=== PATIENT | male | born 1980 | race Caucasian/White ===

== ENCOUNTER 2022-07-26 21:45 | Inpatient (IN) | payer OTHER, SELFPAY ==
--- NOTE | ~2022-07-26 | XR_ITS ---
EXAMINATION: XR chest 1V portable INDICATION: Shortness of breath TECHNIQUE: Portable AP chest at 1248 hours COMPARISON: 07/27/2022 FINDINGS: Patchy opacities of the lung bases persist with slight worsening on the left. No pleural ef fusion or pneumothorax. The cardiomediastinal silhouette is normal. Suture anchors are noted in the l eft humeral head. IMPRESSION: 1. Patchy opacities of the lung bases with slight worsening on the left, consistent with atelectasis versus pneumonia. Reviewed, dictated and finalized at location B. 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 Patchy opacities of the lung bases with slight worsening on the left, consis tent with atelectasis versus pneumonia.
--- NOTE | ~2022-07-26 | CT_ITS ---
EXAMINATION: CT diagnostic chest wo con DATE: 07/27/2022 05:12 INDICATION: Severe cough and congestion for 13 days TECHNIQUE: Computed tomography (CT) of the chest was performed without intravenous contrast. Automate d exposure control and iterative reconstruction technique were employed. Exam dose: 563.17 mGy-cm to crow exam DLP. COMPARISON: 07/27/2022 PA and lateral chest FINDINGS: There is mild patchy infiltrate of the middle lobe and scattered patchy consolidating infil trates of both lower lobes, likely due to bilateral pneumonia. If diagnosis includes aspiration pneum onitis. Normal heart size. No pericardial or pleural effusion. No hilar or mediastinal mass lesion or lymphad enopathy. Normal morphology of the adrenal glands. IMPRESSION: Patchy bilateral lower lobe and middle lobe infiltrates, consistent with bilateral pneum onia or less likely aspiration pneumonitis Reviewed, dictated and finalized at Location [facility]. Reviewed, dictated and finalized at location A. IMPRESSION: Patchy bilateral lower lobe and middle lobe infiltrates, consisten t with bilateral pneumonia or less likely aspiration pneumonitis
--- NOTE | ~2022-07-26 | US_ITS ---
EXAMINATION: US carotid duplex BI DATE: 07/27/2022 10:10 INDICATION: Syncope TECHNIQUE: Grayscale, color Doppler, and pulsed Doppler images of the cervical carotid arteries were obtained. The degree of vessel stenosis is placed in one of the following categories: normal, <50%, 5 0-69%, >=70% but less than near-occlusion, near-occlusion, or total occlusion. Note that percent sten osis relative to normal distal artery lumen diameter is indirectly measured from velocity measurement s as described by Akshat, et al. Radiology 2003; 229:340-346. COMPARISON: None. FINDINGS: RIGHT: The right common carotid artery (CCA) peak systolic velocity (PSV) is 111.2 cm/s. The right internal carotid artery (ICA) PSV is 66.5 cm/s. The right ICA end-diastolic velocity (EDV) is 19.2 cm/s. The r ight ICA/CCA PSV ratio is 0.6. Grayscale and color Doppler images yield an estimate of 0% diameter re duction from plaque in the ICA. The external carotid artery (ECA) PSV is 118.9 cm/s. There is antegra de flow in the right vertebral artery. LEFT: The left CCA PSV is 113.7 cm/s. The left ICA PSV is 81.5 cm/s. The left ICA EDV is 20.0 cm/s. The lef t ICA/CCA PSV ratio is 0.7. Grayscale and color Doppler images yield an estimate of 0% diameter reduc tion from plaque in the ICA. The ECA PSV is 97.1 cm/s. There is antegrade flow in the left vertebral artery. IMPRESSION: 1. No stenosis in the right internal carotid artery. 2. No stenosis in the left internal carotid artery. Reviewed, dictated and finalized at Location [facility]. Reviewed, dictated and finalized at location A. 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
--- NOTE | ~2022-07-26 | XR_ITS ---
XR chest 2V DATE: 07/27/2022 03:59 INDICATION: Cough TECHNIQUE: PA and lateral views COMPARISON: None FINDINGS: There is patchy infiltrate at the right lung base and in the left lower lobe, particularly the retrocardiac area and basilar area. Differential diagnosis includes bilateral lower lobe pneumoni a and aspiration pneumonitis. Normal heart size. No hilar or mediastinal enlargement. No pleural effusion or pulmonary vascular con gestion or pneumothorax. IMPRESSION: Bilateral lower lobe infiltrates; differential diagnosis includes bilateral pneumonia and aspiration pneumonitis Reviewed, dictated and finalized at location A. IMPRESSION: Bilateral lower lobe infiltrates; differential diagnosis includes b ilateral pneumonia and aspiration pneumonitis
[2022-07-26 21:49] VITALS: BP 144/66; PULSE 96; RESP 20; TEMP 36.2; O2SAT 95
--- NOTE | 2022-07-26 22:01 | ECG_ITS ---
Measurements Intervals [place] Rate: 97 P: 52 MA: 137 QRS: 16 QRSD: 88 T: 46 QT: 356 QTc: 452 Interpretive Statements SINUS RHYTHM BASELINE ARTIFACT- I, II, AVR NORMAL ECG NO PREVIOUS ECG AVAILABLE FOR COMPARISON Electronically Signed On 07-27-2022 7:31:27 CDT by Bryan Howard D.O.
[2022-07-26 22:23] LABS: Basophils Percent Auto 0.6 % (0.2-1.2); Eosinophils Percent Auto 0.2 % (0-4.4); Hematocrit 48.2 % (42.0-52.0); Hemoglobin 16.6 g/dL (14.0-18.0); Immature Granulocyte Absolute 0.02 K/mm3 (0.00-0.031); Immature Granulocyte Percent A 0.4 % (0-0.5); Lymphocytes Absolute Auto 1.75 K/mm3 (0.9-3.2); Mean Corpuscular HGB Conc 34.4 g/dl (32-36); Mean Corpuscular Hemoglobin 30.3 pg (26-34); Mean Platelet Volume 9.9 fl (7.4-10.4); Monocytes Absolute Auto 0.4 K/mm3 (0.1-0.6); Monocytes Percent Auto 8.2 % (2.6-8.5); Neutrophils Absolute Auto 2.9 K/mm3 (1.3-6.7); Neutrophils Percent Auto 56.6 % (45.5-73.1); Platelet Count Result 192 k/mm3 (150-375); Red Blood Count 5.48 M/mm3 (4.6-6.20); Red Cell Distribution Width 12.5 % (11.5-14.5); White Blood Count 5.2 K/mm3 (4.5-10.0)
[2022-07-26 22:35] LABS: Alanine Aminotransferase 69 U/L (6-50); Albumin Level 4.8 g/dL (3.5-5.1); Alkaline Phosphatase 113 U/L (38-126); Anion Gap 13 mmol/L (8-16); Aspartate Amino Transferase 62 U/L (17-59); Bilirubin,Total 0.7 mg/dL (0.2-1.3); Blood Urea Nitrogen 13 mg/dL (9-20); Calcium 9.5 mg/dL (8.4-10.2); Carbon Dioxide 31 mmol/L (22-30); Chloride 97 mmol/L (98-107); Estimated Glomerular Filt Rate > 60; Glucose 137 mg/dL (65-110); Potassium 4.2 mmol/L (3.4-5.0); Sodium 141 mmol/L (137-145)
[2022-07-27] VITALS (29 sets, daily range): BP systolic 110–151; BP diastolic 67–113; PULSE 70–112; RESP 14–31; TEMP 36.2–36.8; O2SAT 88–97; BMI 33.3
--- NOTE | 2022-07-27 | ECHO_ITS ---
Patient Info Name: Amauri Herrera Age: 42 years : 1980 Gender: Male Ht: 71 in Wt: 238 lbs BSA: 2.36 m2 HR: 88 bpm BP: 151 / 79 mmHg Heart Rhythm: Sinus Rhythm Exam Date: 07/27/2022 2:51 PM Exam Location: [facility] Patient Status: Inpatient Admit Date: 07/27/2022 Staff Ordering Physician: Sophy Jean MD Soft Sugar Supervisor: Og Parks RDCS Attending Provider: Trip Solares MD Exam Type: CA echo doppler color flow Study Info Indications - syncope Complete two-dimensional, color flow and Doppler transthoracic echocardiogram is performed. Summary 1. Complete two-dimensional, color flow and Doppler transthoracic echocardiogram is performed. 2. Left ventricular chamber dimension is normal. 3. Left ventricular systolic function is normal, estimated at 60-65%. 4. There is mildly increased left ventricular wall thickness. 5. The left ventricular diastolic function is grade I diastolic dysfunction. 6. Left atrial chamber dimension is mildly enlarged. 7. There is mild mitral valve regurgitation. 8. The aortic root size at the sinus of Valsalva is mildly dilated. Left Ventricle Left ventricular chamber dimension is normal. Left ventricular systolic function is normal, estimated at 60-65%. There is mildly increased left ventricular wall thickness. The left ventricular diastolic function is grade I diastolic dysfunction. Right Ventricle Right ventricular chamber dimension is normal. Right ventricular systolic function is normal. Left Atria Left atrial chamber dimension is mildly enlarged. Right Atria Right atrial chamber dimension is normal. Atrial Septum Intact interatrial septum visualized by color flow imaging. Aortic Valve The aortic valve is not well visualized. There is mild aortic valve sclerosis. There is no aortic valve stenosis. There is trace aortic valve regurgitation. Pulmonic Valve The pulmonic valve is not well visualized. There is no pulmonic valve stenosis. There is trace pulmonic regurgitation. Mitral Valve The mitral valve has normal leaflets. There is no mitral valve stenosis. There is mild mitral valve regurgitation. Tricuspid Valve The tricuspid valve leaflets are normal. There is no significant tricuspid valve stenosis. There is trace tricuspid valve regurgitation. Pericardium/Pleural The pericardium appears epicardial fat pad. There is trivial pericardial effusion. Inferior Vena Cava Normal inferior vena cava with <50% collapse upon inspiration consistent with elevated right atrial pressure, 10 mmHg. Aorta The aortic root size at the sinus of Valsalva is mildly dilated. Left Ventricular Outflow Tract Name Value Normal LVOT 2D LVOT Diameter 2.2 cm LVOT Doppler LVOT Peak Gradient 6 mmHg LVOT Mean Gradient 4 mmHg LVOT VTI 25 cm LVOT VTI/AV VTI Ratio 1.0 LVOT Stroke Volume 93 ml LVOT CO 8.7 l/min LVOT CI
--- NOTE | 2022-07-27 02:01 | ED.SYNCOPE ---
HPI - Syncope General Chief Complaint: Syncope Stated Complaint: Syncope Time Seen by Provider: 07/27/22 01:30 Source: patient and RN notes reviewed Mode of arrival: ambulatory Limitations: no limitations History of Present Illness HPI narrative: This is a 42 year old male who presents for evaluation of a syncopal episode. Patient has been having cough and chest congestion for 10-12 days. He last had fever 2 days ago. He reports a cough with clear phlegm. He has been having intermittent episodes in which he feels dizzy with cough. Tonight he was coughing while sitting in a chair, and his told him he was unresponsive for 1 minute. He states he immediately became responsive and asked what happened. He denies chest pain, sob, nausea, vomiting. He denies having episodes of dizziness or lightheadedness with standing. He reports history of syncope in the past. Denies any medical problems. Related Data Home Medications Medication Instructions Recorded Confirmed No Home Medications 08/02/20 08/08/20 Allergies Allergy/AdvReac Type Severity Reaction Status Date / Time No Known Allergies Allergy Verified 07/26/22 21:47 Review of Systems Review of Systems: All systems reviewed & are unremarkable except as noted in HPI and below Constitutional: Constitutional: Denies chills, Denies fatigue and Reports fever(s) ENT: Reports nasal congestion Cardiovascular: Cardiovascular: Denies chest pain, Denies rapid heart rate and Denies radiating jaw, neck or arm pain Respiratory: Respiratory: Reports chest congestion, Reports cough and Denies dyspnea Gastrointestinal: Gastrointestinal: Denies abdominal pain, Denies nausea and Denies vomiting Neurologic: Reports syncope, Denies headache(s) and Denies focal weakness [facility] Past Medical History Medical History History of 2019 novel coronavirus disease (COVID-19) Surgical History Surgical History History of shoulder surgery left shoulder Family History Family History Grandparent Lung cancer Grandparent Acute myocardial infarction Social History Social History Smoking status: Never smoker Alcohol intake: current Alcohol use details: rare 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 Exam Const: General: no acute distress and alert Nutritional Appearance: well nourished Orientation/consciousness: patient oriented x3 Limitations: no limitations HENMT: Head: normal to inspection Ears: external ears normal Eyes: Conjunctivae: conjunctivae normal EOM: EOMs intact bilaterally Chest: Chest palpation & inspection: normal inspection of the chest Resp: Effort & Inspection: normal respiratory effort Auscultation: clear to auscultation bilaterally Cardio: Rate: regular rate Rhythm: regular rhythm Heart sounds: no murmurs GI: GI Palp: Yes Soft to palpation, No Tenderness to palpation present (GI), No Guarding due to palpation present (GI) and No Rigid due to palpation Auscultation: normal bowel sounds Skin: General skin exam: normal color Rashes: no rashes Wounds: no wounds Neuro: General: patient oriented x3, moves all extremities and CN's II-XI intact bilaterally Extrem: General: normal to inspection Psych: Mental Status: mental status grossly normal Affect: normal affect Attitude: cooperative Course Reevaluation(s) Reevaluation #1: PAtient has been resting in bed comfortably. his oxygen saturation is running 85-90% room air. Patient has no complaints. He feels better after cough medication. On reviewed of CT he appears to have bilateral pneumonia. I discussed with hospitalist and she accepts patient to hospitalist service. CT radiologist read is still pending and Dr. javier made aware Date: 07/27/22 Time: 06:
[2022-07-27] MEDS: IPRATROPIUM BR 0.02% INH SOLN 0.5 MG/2.5 ML VIAL INHALATION ×3 (02:07→20:25)
[2022-07-27] MEDS: ALBUTEROL SULFATE NEB 2.5 MG/3 ML INH 5 MG INHALATION ×3 (02:07→20:24)
[2022-07-27 02:09] LABS: Partial Thromboplastin Time 31.2 SECONDS (22.3-36.8)
[2022-07-27 02:12] LABS: D Dimer 0.48 ug/mL (<0.48)
[2022-07-27 02:17] LABS: Magnesium 2.1 mg/dL (1.6-2.3)
[2022-07-27 02:22] LABS: NT Pro B Type Natriuretic Pept 25 pg/mL (5-100); Troponin I < 0.012 ng/mL (0.000-0.034)
--- NOTE | 2022-07-27 02:30 | PC.NURSE ---
pt to xr
[2022-07-27 02:34] LABS: Influenza A QL RT-PCR Negative (Negative); Influenza B QL RT-PCR Negative (Negative); SARS-CoV-2 RNA PCR Negative
[2022-07-27] MEDS: predniSONE 20 MG TABLET 60 MG PO (03:01)
[2022-07-27] MEDS: BENZONATATE 100 MG CAPSULE 200 MG PO (03:01)
[2022-07-27] MEDS: SODIUM CHLORIDE 0.9% IV 1,000 ML 999 ML IV CONT (03:01)
--- NOTE | 2022-07-27 07:44 | ADMGEN ---
This patient, Amauri Herrera, was admitted to [facility] Surg Room 301-01 at 0720. Patient/family oriented to hospital policies and general routines including ID bracelet, bed and alarms, visiting hours, pain management, procedures, bathroom and other care routines, personal items, smoking policy, room service/diet, and visiting hours. Information on how to activate the Rapid Response Team has been discussed. Patient/Family are encouraged to report perceived risks to care and to ask questions if they do not understand what they are told or what they should do.
[2022-07-27] MEDS: SODIUM CHLORIDE 0.9% IV 1,000 ML 125 ML IV CONT ×2 (08:40→16:59)
[2022-07-27] MEDS: FLUTICASONE PROPIONATE 0.05% NA SPR 16 GM BTL (*BKC) 1 SPRAY NASAL ×2 (11:55→20:23)
[2022-07-27] MEDS: ASCORBIC ACID 500 MG TABLET PO (11:55)
[2022-07-27] MEDS: CYANOCOBALAMIN 1,000 MCG TABLET 1000 MCG PO (11:55)
[2022-07-27] MEDS: CHOLECALCIFEROL 1,000 UNITS TABLET 1000 UNITS PO (11:55)
[2022-07-27] MEDS: LORATADINE 10 MG TABLET PO (11:55)
[2022-07-27] MEDS: ZINC SULFATE 220 MG CAPSULE PO (11:55)
--- NOTE | 2022-07-27 12:33 | PM.IMHP ---
H&P: HPI History of Present Illness Date/Time: 07/27/22 12:33 Chief Complaint: syncope with cough Narrative: ED-HPI narrative: This is a 42 year old male who presents for evaluation of a syncopal episode. Patient has been having cough and chest congestion for 10-12 days.? He last had fever 2 days ago.? He reports a cough with clear phlegm. He has been having intermittent episodes in which he feels dizzy with cough. Tonight he was coughing while sitting in a chair, and his told him he was unresponsive for 1 minute. He states he immediately became responsive and asked what happened. He denies chest pain, sob, nausea, vomiting. He denies having episodes of dizziness or lightheadedness with standing. He reports history of syncope in the past. Denies any medical problems. patient with persistent cough and syncope most likely secondary to vasovagal, chest is clear a showed ?bilateral lower lobe infiltrates; differential diagnosis includes bilateral pneumonia and aspiration pneumonitis, patient was started on ceftriaxone and azithromycin, will stop ceftriaxone and switch over to Zosyn to cover for anaerobic with concern for aspiration pneumonia, also patient complains postnasal drip patient also complains of postnasal drip will start the patient on Flonase, guaifenesin and Tessalon, to further evaluate syncopal episode will do the cardiac echo carotid ultrasound and further recommendation to follow. patient admitted as inpatient with aspiration pneumonia and will require IV antibiotics patient will stay in the hospital for 2 midnights Review of Systems Review of Systems: All systems reviewed & are unremarkable except as noted in HPI and below PMFSH Past Medical History Medical History History of 2019 novel coronavirus disease (COVID-19) Surgical History Surgical History History of shoulder surgery left shoulder Family History Family History (Updated 07/27/22 @ 07:46 by Julieta Limon RN) Grandparent Lung cancer Grandparent Acute myocardial infarction Mother Multiple sclerosis Social History Social History Smoking status: Never smoker Alcohol intake: current Drinks per week: 3 Alcohol use details: rare Substance use: current Substance use type: marijuana Has the Lack of Transportation Kept You From Medical Appointments or From Getting Medications?: No Within the Past 12 Months, Were You Worried Whether Your Food Would Run Out Before You Got Money to Buy More?: Never True What is Your Housing Situation Today?: I Have Housing Are You Worried That in the Next 2 Months, You May Not Have Your Own Housing to Live In?: No Do You Have Trouble Paying Your Heating Or Electricity Bill?: No Do You Have Trouble Paying For Medicines?: No Are You Currently Unemployed and Looking for Work?: No Highest Level of Education Completed: Bachelor's Degree Do You Have Trouble With Childcare or the Care of a Family Member?: No 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 Spiritual care concerns: No Meds Home Medications and Allergies Home Medications Medication Instructions Recorded Confirmed Type ascorbate calcium (vitamin C) 500 500 mg PO DAILY 07/27/22 07/27/22 History mg tablet cholecalciferol (vitamin D3) 25 25 mcg PO DAILY 07/27/22 07/27/22 History mcg (1,000 unit) tablet (Vitamin D3) mecobalamin (vitamin B12) 1,000 1,000 mcg PO DAILY 07/27/22 07/27/22 History mcg chewable tablet (B12 Active) zinc 100 mg tablet 200 mg PO DAILY 07/27/22 07/27/22 History Allergies Allergy/AdvReac Type Severity Reaction Status Date / Time No Known Allergies Allergy Verified 07/26/22 21:47 Vital Signs Vital Signs - 24 hr 07/26/22 21:49 07/27/22 00:32 07/27/22 01:52 Temperature 97.2 F L Pulse Rate
[2022-07-27 16:41] LABS: Base Excess ABG -3.1 mEq/l (+/-2.0); Device NASAL CANNULA; Fractional Inspired Oxygen 28 %; HCO3 ABG 19.9 mEq/l (22.0-26.0); Modified Allen's Test Pass; Oxygen Content ABG 20.1 %vol (16.0-22.0); Oxygen Saturation ABG 95.3 % (95.0-100.0); Oxyhemoglobin 93.4 % THb (90.0-100.0); PCO2 ABG 30.4 mmHg (35.0-45.0); PO2 ABG 72.8 mmHg (80.0-100.0); Site Drawn RIGHT RADIAL; Total Hemoglobin 15.3 g/dL (12.0-18.0); pH ABG 7.434 (7.350-7.450)
[2022-07-28] VITALS (10 sets, daily range): BP systolic 129–154; BP diastolic 88–90; PULSE 75–95; RESP 15–18; TEMP 36.3–36.6; O2SAT 92–96
--- NOTE | 2022-07-28 01:12 | PC.NURSE ---
Daylight Savings Time For Daylight Savings Time Ending in the Fall - Clocks are moved back. For Daylight Savings Time Beginning in the Spring - Clocks are moved ahead. For [facility], the time of change occurs at 0200 hrs. Time is taken from the cafe server. This entry on the patient's chart recognizes the change in time reflected during documentation. Example: 2 entries for vital signs may be charted for 0200 hrs.
[2022-07-28] MEDS: SODIUM CHLORIDE 0.9% IV 1,000 ML 125 ML IV CONT ×2 (01:39→12:34)
[2022-07-28 07:45] LABS: Basophils Percent Auto 0.4 % (0.2-1.2); Eosinophils Percent Auto 0.2 % (0-4.4); Hematocrit 41.8 % (42.0-52.0); Hemoglobin 14.1 g/dL (14.0-18.0); Immature Granulocyte Absolute 0.02 K/mm3 (0.00-0.031); Immature Granulocyte Percent A 0.4 % (0-0.5); Lymphocytes Absolute Auto 1.99 K/mm3 (0.9-3.2); Mean Corpuscular HGB Conc 33.7 g/dl (32-36); Mean Corpuscular Hemoglobin 30.7 pg (26-34); Mean Corpuscular Volume 90.9 fl (80-100); Mean Platelet Volume 10.6 fl (7.4-10.4); Monocytes Absolute Auto 0.4 K/mm3 (0.1-0.6); Monocytes Percent Auto 6.5 % (2.6-8.5); Neutrophils Absolute Auto 3.3 K/mm3 (1.3-6.7); Neutrophils Percent Auto 57.5 % (45.5-73.1); Platelet Count Result 160 k/mm3 (150-375); Red Cell Distribution Width 12.7 % (11.5-14.5); White Blood Count 5.7 K/mm3 (4.5-10.0)
[2022-07-28] MEDS: ALBUTEROL SULFATE NEB 2.5 MG/3 ML INH 5 MG INHALATION ×3 (08:01→20:48)
[2022-07-28] MEDS: IPRATROPIUM BR 0.02% INH SOLN 0.5 MG/2.5 ML VIAL INHALATION ×3 (08:02→20:49)
[2022-07-28 08:03] LABS: Alanine Aminotransferase 48 U/L (6-50); Albumin Level 3.8 g/dL (3.5-5.1); Alkaline Phosphatase 81 U/L (38-126); Anion Gap 11 mmol/L (8-16); Aspartate Amino Transferase 36 U/L (17-59); Bilirubin,Total 0.6 mg/dL (0.2-1.3); Blood Urea Nitrogen 14 mg/dL (9-20); Calcium 8.5 mg/dL (8.4-10.2); Carbon Dioxide 26 mmol/L (22-30); Chloride 104 mmol/L (98-107); Estimated CRCL calculation 95 ml/min; Estimated Glomerular Filt Rate > 60; Glucose 125 mg/dL (65-110); Potassium 4.1 mmol/L (3.4-5.0); Sodium 141 mmol/L (137-145)
[2022-07-28] MEDS: FLUTICASONE PROPIONATE 0.05% NA SPR 16 GM BTL (*BKC) 1 SPRAY NASAL ×2 (08:52→20:39)
[2022-07-28] MEDS: LORATADINE 10 MG TABLET PO (08:53)
[2022-07-28] MEDS: ASCORBIC ACID 500 MG TABLET PO (08:53)
[2022-07-28] MEDS: CYANOCOBALAMIN 1,000 MCG TABLET 1000 MCG PO (08:53)
[2022-07-28] MEDS: predniSONE 20 MG TABLET 60 MG PO (08:53)
[2022-07-28] MEDS: ENOXAPARIN 40 MG/0.4 ML SYRINGE SUB-Q (08:53)
[2022-07-28] MEDS: ZINC SULFATE 220 MG CAPSULE PO (08:53)
[2022-07-28] MEDS: CHOLECALCIFEROL 1,000 UNITS TABLET 1000 UNITS PO (08:53)
--- NOTE | 2022-07-28 14:59 | PM.IMPN ---
Progress Note: A&P Assessment and Plan (1) Tussive syncope: Code(s): R55 - Syncope and collapse; R05.4 - Cough syncope Status: Acute Assessment and Plan: resolved (2) Acute respiratory failure with hypoxemia: Code(s): J96.01 - Acute respiratory failure with hypoxia Status: Acute Assessment and Plan: July 28 on 2 L of oxygen attempt to wean plan home oxygen evaluation July 29 (3) Pneumonia: Code(s): J18.9 - Pneumonia, unspecified organism Status: Acute Assessment and Plan: likely viral, not COVID, RSV, or influenza complete 5 day course of antibiotics ( DAY 1 WAS JULY 27); COULD TRANSITIONED TO P.O. UPON DISCHARGE possible discharge July 29 Subjective Date/time seen: 07/28/22 14:59 Review of Systems Review of Systems: PATIENT PRESENTED WITH SYNCOPE WHILE COUGHING. HE HAD ABOUT 12 DAYS OF COUGH THAT SEEMED TO BE GETTING BETTER. NONPRODUCTIVE. APPETITE IS IMPROVING. NO FEVERS. NO NOTED SHORTNESS OF BREATH OR CHEST PAIN. MILD HOARSENESS. NO NASAL CONGESTION OR HEADACHES. NO GI ID SYMPTOMS. TESTED NEGATIVE FOR COVID RSV AND INFLUENZA. DENIED WEAKNESS OR NUMBNESS OR DOUBLE VISION. DENIED ABNORMAL BLEEDING. 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 NEVER PASSED OUT COMPLETELY BEFORE. JUST FELT IF HE MIGHT IF HE DID SIT DOWN. All systems reviewed & are unremarkable except as noted in HPI and below Exam Narrative: Robust middle-aged gentleman in no acute distress voice hoarse neck without JVD chest with normal respiratory effort coarse breath sounds bilateral lower lobes with bilateral basilar fine crackles scattered heart normal S1 and S2 regular rate without audible murmurs or gallops abdomen good bowel sounds soft nontender without palpable masses extremities no edema cyanosis or clubbing musculoskeletal without gross deformity visual inspection neurologic cranial nerves symmetric to visual inspection Objective Data Vital Signs Vital Signs: Vital Signs - 24 hr 07/27/22 16:53 07/27/22 16:00 07/27/22 20:26 Temperature Pulse Rate 92 70 Respiratory Rate 14 Blood Pressure Pulse Oximetry 95 Oxygen Delivery Nasal Cannula Oxygen Flow Rate 2 07/27/22 22:00 07/28/22 06:00 07/28/22 07:55 Temperature 97.3 F L 97.8 F Pulse Rate 91 79 78 Respiratory Rate 16 18 15 Blood Pressure 118/72 154/90 H Pulse Oximetry 94 95 Oxygen Delivery Oxygen Flow Rate 07/28/22 08:03 07/28/22 08:10 07/28/22 08:00 Temperature Pulse Rate 80 Respiratory Rate 15 15 Blood Pressure Pulse Oximetry 95 94 Oxygen Delivery Nasal Cannula Nasal Cannula Oxygen Flow Rate 2 2 07/28/22 13:29 07/28/22 14:24 Temperature 97.4 F L Pulse Rate 76 95 Respiratory Rate 16 16 Blood Pressure 150/89 H Pulse Oximetry 94 Oxygen Delivery Oxygen Flow Rate Intake/Output Intake/Output: Intake & Output 07/25/22 07/26/22 07/27/22 07/28/22 23:59 23:59 23:59 22:59 Intake Total 3303 2890 Output Total 600 Balance 2703 2890 Meds/Results Medications: Active Medications Generic Name Dose Route Start Last Admin Trade Name Freq PRN Reason Stop Dose Admin Albuterol 5 mg 07/27/22 08:00 07/28/22 13:29 Albuterol Sulfate Neb 2.5 Mg/3 Ml Inh INHALATION 5 mg Q6HRT KIMBERLY Administration Ascorbic Acid 500 mg 07/27/22 09:00 07/28/22 08:53 Ascorbic Acid 500 Mg Tablet PO 500 mg DAILY KIMBERLY Administration Cyanocobalamin 1,000 mcg 07/27/22 09:00 07/28/22 08:53 Cyanocobalamin 1,000 Mcg Tablet PO 1,000 mcg QAM KIMBERLY Administration Enoxaparin Sodium 40 mg 07/28/22 09:00 07/28/22 08:53 Enoxaparin 40 Mg/0.4 Ml Syringe SUB-Q 40 mg DAILY KIMBERLY Administration Fluticasone Propionate 1 spray 07/27/22 09:00 07/28/22 08:52 Fluticasone Propionate 0.05% Na Spr 16 Gm Btl (*Bkc) NASAL 1 spray Q12HR KIMBERLY
[2022-07-29] VITALS (7 sets, daily range): BP systolic 133–138; BP diastolic 76–80; PULSE 72–78; RESP 12–20; TEMP 36.2–36.3; O2SAT 90–100
[2022-07-29] MEDS: IPRATROPIUM BR 0.02% INH SOLN 0.5 MG/2.5 ML VIAL INHALATION ×2 (07:55→13:45)
[2022-07-29] MEDS: ALBUTEROL SULFATE NEB 2.5 MG/3 ML INH 5 MG INHALATION ×2 (07:55→13:45)
[2022-07-29] MEDS: predniSONE 20 MG TABLET 60 MG PO (08:12)
[2022-07-29] MEDS: ZINC SULFATE 220 MG CAPSULE PO (08:13)
[2022-07-29] MEDS: CHOLECALCIFEROL 1,000 UNITS TABLET 1000 UNITS PO (08:13)
[2022-07-29] MEDS: ASCORBIC ACID 500 MG TABLET PO (08:13)
[2022-07-29] MEDS: CYANOCOBALAMIN 1,000 MCG TABLET 1000 MCG PO (08:13)
[2022-07-29] MEDS: LORATADINE 10 MG TABLET PO (08:13)
[2022-07-29] MEDS: ENOXAPARIN 40 MG/0.4 ML SYRINGE SUB-Q (08:14)
[2022-07-29] MEDS: FLUTICASONE PROPIONATE 0.05% NA SPR 16 GM BTL (*BKC) 1 SPRAY NASAL (08:14)
--- NOTE | 2022-07-29 11:15 | PM.DS ---
DS: Admitting Diagnosis Discharge Date 07/29/22 1115 Admitting Diagnosis syncope and pna DS: Discharge Diagnosis Discharge Diagnosis (1) Tussive syncope: Code(s): R55 - Syncope and collapse; R05.4 - Cough syncope Status: Acute Assessment and Plan: Resolved (2) Acute respiratory failure with hypoxemia: Code(s): J96.01 - Acute respiratory failure with hypoxia Status: Acute Assessment and Plan: July 28 on 2 L of oxygen ?attempt to wean ?plan home oxygen evaluation July 29 (3) Pneumonia: Code(s): J18.9 - Pneumonia, unspecified organism Status: Acute Assessment and Plan: likely viral, not COVID, RSV, or influenza complete 5 day course of antibiotics ( DAY 1 WAS JULY 27);? COULD TRANSITIONED TO P.O. UPON DISCHARGE ?possible discharge July 29 DS: Summary Hospital Course Hospital Course: Patient is a 42-year-old male with past medical history of COVID Prieb who presented to the ED with evaluation of syncopal episode. It was noted prior to arrival the patient was having cough congestion for the last 10-12 days and fever. He was sitting on the couch and his noted that he was unresponsive for 1 minute. Upon arrival to the ER the chest x-ray showed bilateral lower lobe infiltrates and patient was started on ceftriaxone and azithromycin however which was switched to Zosyn. Patient was also started on Flonase and guaifenesin for congestion all symptoms. CT was performed as well and showed patchy bilateral lower infiltrates consistent with pneumonia. ABG was performed and showed compensated respiratory alkalosis. AST and ALT were mildly elevated upon arrival however returned to baseline. Flu and B COVID were all negative. Patient was also provided supplemental oxygen which has been weaned to room air. Patient's saturations are in the high 90s. Patient is feeling better. Carotid Dopplers were performed and showed no stenosis in the right or left internal carotid artery. Echo was performed and showed EF of 60-65% with a grade 1 diastolic dysfunction. Patient has not exhibited any lightheadedness or dizziness throughout the stay. Patient is stable for discharge at this time and labs and vital signs remained stable. Status at Discharge Functional status at discharge: independent ambulation Overall status at discharge: patient is progressing back to baseline Time Spent with Patient Time attestation: Total time spent providing and/or coordinating discharge services: 38 minutes Specific discharge activities: Diagnostic testing, chart review, developing a treatment plan, education, care coordination documentation, physical exam, result review Exam Const: General: cooperative, healthy appearing, no acute distress, well developed, alert, awake and well nourished Nutritional Appearance: well nourished Orientation/consciousness: patient oriented x3 Limitations: no limitations HENMT: Head: normal to inspection Ears: hearing grossly normal bilaterally Face/Nose/Sinus: Normal external nose present Mouth: Yes Normal oral and palatal mucosa present, Yes lip normal and Yes tongue normal Teeth and gingiva: abnormal tooth and associated gingiva and poor dentition Eyes: General: appearance normal, both eyes and all related structures Neck: Neck: normal visual inspection, full ROM, trachea midline and supple Chest: Chest palpation & inspection: normal inspection of the chest Resp: Effort & Inspection: normal respiratory effort and able to speak in complete sentences Auscultation: clear to auscultation bilaterally Cardio: Jugular venous distension: no JVD Rate: regular rate Rhythm: regular rhythm Heart sounds: S1 normal heart sound present and S2 normal heart sound present Peripheral pulses: Peripheral pulses 2+ throughout GI: Inspection: normal to inspection GI Palp: Yes Soft to palpation and No Tenderness to palpation present (GI) Auscultation:
[2022-07-29] MEDS: guaiFENesin 12 HR 600 MG TABCR 1200 MG PO (13:07)
== END 2022-07-29 15:50 | disposition home or self-care (01) | DRG 195 ==
LOC: ANHED 07-27 06:27 → ANH3MEDSUR 07-27 06:35
PROVIDERS: Family Medicine; Admitting Provider Internal Medicine; Emergency Provider General Practice; Visit Provider Nurse Practitioner
DX: J12.9 Viral pneumonia, unspecified (principal); Z86.16 Personal history of COVID-19; Z80.1 Family history of malignant neoplasm of trachea, bronchus and lung; R05.8 Other specified cough; Z20.822 Contact with and (suspected) exposure to COVID-19
CPT/HCPCS: 36415; 36600; 71045; 71046; 71250; 80053; 82805; 83735; 83880; 84484; 85025; 85380; 85610; 85730; 87040; 87070; 87205; 87502; 93005; 93306; 93880; 94640; 96361; 96365; 96366; 96367; 96372; 99285; A9270; G0378; J0456; J1650; J2543; J7030; J7512; U0003; U0005

== ENCOUNTER 2022-08-29 09:38 | Outpatient (CLI) | payer OTHER, SELFPAY ==
[2022-08-29 10:24] LABS: Alanine Aminotransferase 64 U/L (6-50); Albumin Level 4.9 g/dL (3.5-5.1); Alkaline Phosphatase 151 U/L (38-126); Anion Gap 7 mmol/L (8-16); Aspartate Amino Transferase 42 U/L (17-59); Bilirubin,Total 0.5 mg/dL (0.2-1.3); Blood Urea Nitrogen 18 mg/dL (9-20); Calcium 9.8 mg/dL (8.4-10.2); Carbon Dioxide 29 mmol/L (22-30); Chloride 106 mmol/L (98-107); Cholesterol 231 mg/dL (0-200); Estimated Glomerular Filt Rate > 60; Glucose 113 mg/dL (65-110); HDL Direct 37 mg/dL; Potassium 4.4 mmol/L (3.4-5.0); Sodium 142 mmol/L (137-145); Triglycerides 249 mg/dL (<150)
[2022-08-29 10:37] LABS: LDL Cholesterol Direct 124 mg/dL
[2022-08-29 10:55] LABS: Prostate Specific Antigen 0.4 ng/mL (< OR = 4.0)
[2022-08-29 11:29] LABS: Folic Acid 13.3 ng/mL (2.76->20)
== END 2022-08-29 09:39 | disposition home or self-care (01) ==
LOC: ANHLAB 09:39
PROVIDERS: PCP Physician Assistant; Visit Provider Physician Assistant
DX: Z00.00 Encounter for general adult medical examination without abnormal findings (principal); Z12.5 Encounter for screening for malignant neoplasm of prostate
CPT/HCPCS: 36415; 80053; 80061; 82607; 82746; 84153; 84443; G0103

== ENCOUNTER 2022-11-05 11:22 | Outpatient (CLI) | payer OTHER, SELFPAY ==
[2022-11-05 12:08] LABS: Alanine Aminotransferase 53 U/L (6-50); Albumin Level 4.8 g/dL (3.5-5.1); Alkaline Phosphatase 115 U/L (38-126); Anion Gap 7 mmol/L (8-16); Aspartate Amino Transferase 36 U/L (17-59); Bilirubin,Total 0.6 mg/dL (0.2-1.3); Blood Urea Nitrogen 12 mg/dL (9-20); Calcium 9.2 mg/dL (8.4-10.2); Carbon Dioxide 28 mmol/L (22-30); Chloride 105 mmol/L (98-107); Estimated Glomerular Filt Rate > 60; Glucose 115 mg/dL (65-110); Potassium 3.8 mmol/L (3.4-5.0); Sodium 140 mmol/L (137-145)
[2022-11-05 12:46] LABS: Free T4 Free Thyroxine 0.83 ng/mL (0.78-2.19)
== END 2022-11-05 11:23 | disposition home or self-care (01) ==
PROVIDERS: PCP Physician Assistant; Visit Provider Physician Assistant
DX: R74.8 Abnormal levels of other serum enzymes (principal); R79.89 Other specified abnormal findings of blood chemistry
CPT/HCPCS: 36415; 80053; 84439; 84443

== ENCOUNTER 2022-11-08 13:10 | Outpatient (CLI) | payer OTHER, SELFPAY ==
--- NOTE | ~2022-11-08 | XR_ITS ---
EXAMINATION: XR chest 2V 11/08/2022 13:24 INDICATION: Cough PROCEDURE: 2 view chest COMPARISON: 07/29/2022 FINDINGS: The lungs are clear. The cardiomediastinal silhouette is within normal limits. There are no pleural effusions. There is no pneumothorax suspected. There are surgical anchors in the left sh oulder. IMPRESSION: 1: NO ACUTE CARDIOPULMONARY DISEASE. Reviewed, dictated and finalized at location A. 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
== END 2022-11-08 13:11 | disposition home or self-care (01) ==
LOC: ANHIMG 13:12
PROVIDERS: PCP Physician Assistant; Visit Provider Physician Assistant
DX: R05.9 Cough, unspecified (principal)
CPT/HCPCS: 71046